=== PATIENT | male | born 1975 | race Caucasian/White ===

== ENCOUNTER 2017-12-17 10:23 | Emergency (ER) | payer MEDICAID ==
[~2017-12-17] VITALS: Ht 157.5 cm; Wt 63.5 kg
--- NOTE | 2017-12-17 10:33 | NUR ---
Patient to bed 11. RN evaluating patient at bedside.
[2017-12-17 10:36] VITALS: BP 129/85
--- NOTE | 2017-12-17 10:51 | NUR ---
PATIENT PRESENTS TO ED WITH DISCOLORATION TO RIGHT SHOULDER AREA S/P FALL IN SHOWER ONTO SHOWER BAR YESTERDAY---FULL ROM WITHOUT GRIMACE OR MOAN . SKI TOPPER STATES PT REMAINS WITH NORMAL BEHAVIOR . PAIN OF 0/10 AT THIS TIME; VSS; PATIENT POSITIONED FOR COMFORT; HOB ELEVATED; BEDRAILS UP X2; BED DOWN. ER MD MADE AWARE OF PT STATUS.
[2017-12-17] MEDS ORDERED: diphenhydrAMINE 50 MG/ML VIAL IM ONE (11:05)
[2017-12-17] MEDS ORDERED: LORazepam 2 MG/ML VIAL IM ONE (11:05)
--- NOTE | 2017-12-17 12:36 | NUR ---
X-RAY COMPLETED---PT NOT AGGRESSIVE, COOPERATIVE AFTER MED INTERVENTION
[2017-12-17 13:06] VITALS: BP 134/79
--- NOTE | 2017-12-17 13:07 | NUR ---
Patient discharged with v/s stable. Written and verbal after care instructions given and explained. Patient alert, oriented and verbalized understanding of instructions. Wheel Chair Assisted with by caregiver. All questions addressed prior to discharge. ID band removed. Patient advised to follow up with PMD. Rx of MOTRIN 800MG given. Patient educated on indication of medication including possible reaction and side effects. Opportunity to ask questions provided and answered.
== END 2017-12-17 13:07 | disposition home or self-care (01) ==
LOC: MED 10:23
DX: S42.001A Fracture of unspecified part of right clavicle, initial encounter for closed fracture (principal); W22.01XA Walked into wall, initial encounter; Y93.E1 Activity, personal bathing and showering; Y92.89 Other specified places as the place of occurrence of the external cause; Y99.8 Other external cause status; E03.9 Hypothyroidism, unspecified
CPT/HCPCS: 73030; 96372; 99284; J1200; J2060; Q0092

== ENCOUNTER 2018-09-25 10:38 | Emergency (ER) | payer MEDICAID ==
[~2018-09-25] VITALS: Ht 157.5 cm; Wt 63.5 kg
--- NOTE | 2018-09-25 10:42 | NUR ---
PT IN WHEELCHAIR TO ER BED 11
--- NOTE | 2018-09-25 10:55 | NUR ---
C/O RHINORRHEA X 2 MONTHS, PER CAREGIVER, NO N/V/D/FEVER OR OTHER SYMPTOMS OF ILLNESS AT THIS TIME. PT CURRENTLY TAKES CLARITIN WITH NO RELIEF. SKIN IS PINK/WARM/DRY, LUNGS CLEAR BL; HR EVEN AND REGULAR.
--- NOTE | 2018-09-25 11:00 | NUR ---
ERMD AT BEDSIDE
[2018-09-25 12:00] VITALS: BP 113/60
--- NOTE | 2018-09-25 12:00 | NUR ---
Patient discharged with v/s stable. Written and verbal after care instructions given and explained and caregiver verbalized understanding. Wheel Chair Assisted with by caregiver. All questions addressed prior to discharge. ID band removed. Rx of pseudophedrine and flonase given. Opportunity to ask questions provided and answered.
== END 2018-09-25 12:00 | disposition home or self-care (01) ==
LOC: MED 10:38
DX: J30.9 Allergic rhinitis, unspecified (principal); J32.9 Chronic sinusitis, unspecified; E03.9 Hypothyroidism, unspecified
CPT/HCPCS: 99283

== ENCOUNTER 2023-03-04 13:21 | Emergency (ER) | payer OTHER, MEDICAID ==
[~2023-03-04] VITALS: Ht 165.1 cm; Wt 63.0 kg
[2023-03-04 14:51] VITALS: BP 135/93; PULSE 91; RESP 20; TEMP 97.5; O2SAT 98
[2023-03-04 15:27] VITALS: BP 112/76; PULSE 78; RESP 18; TEMP 97; O2SAT 98
== END 2023-03-04 15:27 | disposition home or self-care (01) ==
LOC: MED 13:21
DX: E03.9 Hypothyroidism, unspecified (principal); F79 Unspecified intellectual disabilities; Z02.89 Encounter for other administrative examinations; W19.XXXA Unspecified fall, initial encounter; Y93.89 Activity, other specified; Y92.89 Other specified places as the place of occurrence of the external cause; Y99.8 Other external cause status
CPT/HCPCS: 99281

== ENCOUNTER 2023-05-21 08:31 | Inpatient (IN) | payer OTHER, MEDICAID ==
[~2023-05-21] VITALS: Ht 162.6 cm; Wt 68.0 kg
[2023-05-21] VITALS (7 sets, daily range): BP systolic 125; BP diastolic 57; PULSE 90–100; RESP 20–23; TEMP 99; O2SAT 93–96
[2023-05-21] MEDS ORDERED: NACL 0.9% 2,000 ML IV ONE (08:50)
[2023-05-21] MEDS ORDERED: AZITHROMYCIN 500 MG in DEXTROSE 5% 250 ML IV ONE (09:25)
[2023-05-21 09:30] LABS: BASOPHILS # (AUTO) 0.1 K/uL (0.00-0.22); BASOPHILS % (AUTO) 0.5 % (0.0-2.0); EOSINOPHILS # (AUTO) 0.2 K/uL (0-0.4); EOSINOPHILS % (AUTO) 2.6 % (0.0-4.0); HEMATOCRIT 31.6 % (36-52); HEMOGLOBIN 10.5 g/dL (12.0-18.0); LYMPHOCYTES # (AUTO) 4.6 K/uL (2.0-11.5); LYMPHOCYTES % (AUTO) 48.6 % (20.5-51.1); MEAN CORPUSCULAR HEMOGLOBIN 28 pg (27-31); MEAN CORPUSCULAR HGB CONC 33 g/dL (33-37); MEAN CORPUSCULAR VOLUME 85.3 fL (80-94); MONOCYTES # (AUTO) 0.7 K/uL (0.8-1.0); MONOCYTES % (AUTO) 7.2 % (1.7-9.3); NEUTROPHILS # (AUTO) 3.9 K/uL (1.8-7.7); NEUTROPHILS % (AUTO) 41.1 % (42.2-75.2); PLATELET COUNT (AUTO) 405 K/uL (140-450); RED CELL DISTRIBUTION WIDTH 14.4 % (11.6-13.7); WHITE BLOOD COUNT (AUTO) 9.5 K/uL (4.8-10.8)
[2023-05-21] MEDS ORDERED: AZITHROMYCIN 500 MG INJ VIAL IV ONE (09:38)
[2023-05-21] MEDS ORDERED: cefTRIAXone 1,000 MG VIAL ONE (09:38)
[2023-05-21 09:49] LABS: INR 0.99 (0.8-1.2); PROTHROMBIN TIME 10.4 secs (10.8-13.4)
[2023-05-21 10:24] LABS: ALANINE AMINOTRANSFERASE 84 U/L (12-78); ALBUMIN 1.8 g/dL (3.4-5.0); ALKALINE PHOSPHATASE 100 U/L (50-136); ASPARTATE AMINOTRANSFERASE 81 U/L (15-37); BILIRUBIN,DIRECT 0.1 mg/dL (0.0-0.3); LACTIC ACID 1.6 mmol/L (0.4-2.0); TOTAL BILIRUBIN 0.3 mg/dL (0.0-1.0)
[2023-05-21 10:48] LABS: CALCIUM 8.7 mg/dL (8.5-10.1); CARBON DIOXIDE 29.7 mmol/L (21-32); CREATININE 0.6 mg/dL (0.6-1.3); POTASSIUM 3.7 mmol/L (3.5-5.1)
[2023-05-21 11:33] LABS: FLU A ANTIGEN negative (NEGATIVE); FLU B ANTIGEN POSITIVE (NEGATIVE)
[2023-05-21] MEDS ORDERED: ALBUTEROL SULFATE/IPRATROPIU 3 ML SOL IH PRN (12:30)
[2023-05-21] MEDS ORDERED: DEXTROSE 50% 50 ML SYR IVP PRN (12:55)
[2023-05-21] MEDS ORDERED: MORPHINE SULFATE 2 MG/ML SYR IVP PRN (13:00)
[2023-05-21] MEDS ORDERED: ACETAMINOPHEN 325 MG TAB PO PRN (13:00)
[2023-05-21] MEDS ORDERED: MAG SULF 2000 MG/WATER PREMIX 50 ML IV PRN (13:00)
[2023-05-21] MEDS ORDERED: POTASSIUM CHLORIDE 10 MEQ TABER PO PRN (13:00)
[2023-05-21] MEDS ORDERED: ONDANSETRON 4 MG/2 ML VIAL IVP PRN (13:00)
[2023-05-21] MEDS ORDERED: ZOLPIDEM 10 MG TAB PO PRN (13:00)
[2023-05-21] MEDS: methylPREDNISolone SS 40 MG/ML VIAL IVP SCH ×2 (13:32→21:47)
[2023-05-21] MEDS: ALBUTEROL SULFATE/IPRATROPIU 3 ML SOL IH SCH ×3 (15:36→23:00)
[2023-05-21] MEDS: BLOOD GLUCOSE MONITORING 1 DEV DEV FS SCH ×2 (16:45→21:08)
[2023-05-21] MEDS ORDERED: FLONAS NS (17:34)
[2023-05-21] MEDS ORDERED: IBUP-2216 PO (17:34)
[2023-05-21] MEDS ORDERED: LEVO750T75 PO (17:34)
[2023-05-21] MEDS ORDERED: ROB1 PO (17:34)
[2023-05-21] MEDS ORDERED: BENZ-283 PO (17:34)
[2023-05-21] MEDS: OSELTAMIVIR PHOSPHATE 75 MG CAP PO SCH (21:00)
[2023-05-21] MEDS ORDERED: PIPERACILLIN/TAZOBACTAM 2.25 GM VIAL IV ONE (21:10)
[2023-05-21] MEDS: PIPERACILLIN/TAZOBACTAM 2.25 GM in DEXTROSE 5% 50 ML IV SCH (21:47)
[2023-05-21] MEDS: FUROSEMIDE 40 MG/4 ML VIAL IVP SCH (21:47)
[2023-05-22] VITALS (14 sets, daily range): BP systolic 95–120; BP diastolic 49–69; PULSE 74–92; RESP 16–24; TEMP 97–97.3; O2SAT 94–100
[2023-05-22] MEDS: ALBUTEROL SULFATE/IPRATROPIU 3 ML SOL IH SCH ×6 (03:00→22:57)
[2023-05-22 03:54] LABS: BASOPHILS % (AUTO) 0.2 % (0.0-2.0); HEMATOCRIT 31.3 % (36-52); HEMOGLOBIN 10.5 g/dL (12.0-18.0); LYMPHOCYTES # (AUTO) 1.7 K/uL (2.0-11.5); LYMPHOCYTES % (AUTO) 22.4 % (20.5-51.1); MEAN CORPUSCULAR HEMOGLOBIN 29 pg (27-31); MEAN CORPUSCULAR HGB CONC 34 g/dL (33-37); MONOCYTES # (AUTO) 0.3 K/uL (0.8-1.0); MONOCYTES % (AUTO) 3.3 % (1.7-9.3); NEUTROPHILS # (AUTO) 5.7 K/uL (1.8-7.7); NEUTROPHILS % (AUTO) 74.1 % (42.2-75.2); PLATELET COUNT (AUTO) 424 K/uL (140-450); RED BLOOD CELL COUNT(AUTO) 3.68 MIL/uL (4.20-6.10); RED CELL DISTRIBUTION WIDTH 14.2 % (11.6-13.7); WHITE BLOOD COUNT (AUTO) 7.7 K/uL (4.8-10.8)
[2023-05-22 04:10] LABS: ALBUMIN 1.9 g/dL (3.4-5.0); ANION GAP 14.4 (8-16); CALCIUM 8.8 mg/dL (8.5-10.1); CARBON DIOXIDE 27.5 mmol/L (21-32); CREATININE 0.6 mg/dL (0.6-1.3); POTASSIUM 3.9 mmol/L (3.5-5.1); TOTAL BILIRUBIN 0.2 mg/dL (0.0-1.0); TOTAL PROTEIN, SERUM 7.2 g/dL (6.4-8.2)
[2023-05-22] MEDS ORDERED: PIPERACILLIN/TAZOBACTAM 2.25 GM VIAL IV ONE (05:02)
[2023-05-22] MEDS: PIPERACILLIN/TAZOBACTAM 2.25 GM in DEXTROSE 5% 50 ML IV SCH ×2 (05:13→15:07)
[2023-05-22] MEDS: methylPREDNISolone SS 40 MG/ML VIAL IVP SCH ×3 (05:15→21:18)
[2023-05-22] MEDS: BLOOD GLUCOSE MONITORING 1 DEV DEV FS SCH ×4 (07:30→21:19)
[2023-05-22] MEDS: ENOXAPARIN 40 MG/0.4 ML SYR SUBQ SCH (08:56)
[2023-05-22] MEDS: OSELTAMIVIR PHOSPHATE 75 MG CAP PO SCH ×2 (08:57→21:00)
[2023-05-22] MEDS: PANTOPRAZOLE 40 MG INJ VIAL IVP SCH (09:00)
[2023-05-22] MEDS: FUROSEMIDE 40 MG/4 ML VIAL IVP SCH ×3 (10:11→21:18)
[2023-05-22] MEDS: INSULIN LISPRO SLIDING SCALE 100 UNITS/ML VIAL SUBQ PRN ×2 (11:41→16:56)
[2023-05-22] MEDS: PIPERACILLIN/TAZOBACTAM 3.375 GM in DEXTROSE 5% 50 ML IV SCH (21:18)
[2023-05-23] VITALS (16 sets, daily range): BP systolic 95–142; BP diastolic 46–73; PULSE 55–87; RESP 17–24; TEMP 96.8–98.2; O2SAT 95–99
[2023-05-23] MEDS: ALBUTEROL SULFATE/IPRATROPIU 3 ML SOL IH SCH ×4 (04:04→16:19)
[2023-05-23] MEDS: PIPERACILLIN/TAZOBACTAM 3.375 GM in DEXTROSE 5% 50 ML IV SCH ×2 (05:07→12:01)
[2023-05-23] MEDS: methylPREDNISolone SS 40 MG/ML VIAL IVP SCH ×2 (05:07→12:01)
[2023-05-23] MEDS: INSULIN LISPRO SLIDING SCALE 100 UNITS/ML VIAL SUBQ PRN ×2 (06:43→15:53)
[2023-05-23] MEDS: BLOOD GLUCOSE MONITORING 1 DEV DEV FS SCH ×3 (06:43→15:53)
[2023-05-23 07:14] LABS: BASOPHILS # (AUTO) 0.1 K/uL (0.00-0.22); BASOPHILS % (AUTO) 1.1 % (0.0-2.0); HEMATOCRIT 29.4 % (36-52); LYMPHOCYTES # (AUTO) 1.8 K/uL (2.0-11.5); LYMPHOCYTES % (AUTO) 20.4 % (20.5-51.1); MEAN CORPUSCULAR HEMOGLOBIN 29 pg (27-31); MEAN CORPUSCULAR HGB CONC 34 g/dL (33-37); MEAN CORPUSCULAR VOLUME 84.8 fL (80-94); MONOCYTES # (AUTO) 0.6 K/uL (0.8-1.0); MONOCYTES % (AUTO) 6.4 % (1.7-9.3); NEUTROPHILS # (AUTO) 6.2 K/uL (1.8-7.7); NEUTROPHILS % (AUTO) 72.1 % (42.2-75.2); PLATELET COUNT (AUTO) 468 K/uL (140-450); RED BLOOD CELL COUNT(AUTO) 3.47 MIL/uL (4.20-6.10); RED CELL DISTRIBUTION WIDTH 14.5 % (11.6-13.7); WHITE BLOOD COUNT (AUTO) 8.6 K/uL (4.8-10.8)
[2023-05-23 07:36] LABS: ANION GAP 13.2 (8-16); CALCIUM 9.1 mg/dL (8.5-10.1); CARBON DIOXIDE 29.4 mmol/L (21-32); CREATININE 0.6 mg/dL (0.6-1.3); POTASSIUM 3.6 mmol/L (3.5-5.1); TOTAL BILIRUBIN 0.5 mg/dL (0.0-1.0); TOTAL PROTEIN, SERUM 7.6 g/dL (6.4-8.2)
[2023-05-23] MEDS: PANTOPRAZOLE 40 MG INJ VIAL IVP SCH (08:37)
[2023-05-23] MEDS: ENOXAPARIN 40 MG/0.4 ML SYR SUBQ SCH (08:38)
[2023-05-23] MEDS: FUROSEMIDE 40 MG/4 ML VIAL IVP SCH (08:38)
[2023-05-23] MEDS: OSELTAMIVIR PHOSPHATE 75 MG CAP PO SCH ×2 (08:38→14:09)
[2023-05-23] MEDS ORDERED: TAM75 PO (15:06)
[2023-05-23] MEDS ORDERED: AMOX-999 PO (15:06)
[2023-05-23] MEDS ORDERED: PRED20TA5 PO (15:20)
[2023-05-23] MEDS ORDERED: PANT40EC PO (15:21)
== END 2023-05-23 17:10 | disposition home or self-care (01) | DRG 193 ==
LOC: MED 08:31 → MTU 12:36
PROVIDERS: ADMIT Family Medicine; ATTEND Family Medicine
DX: J10.00 Influenza due to other identified influenza virus with unspecified type of pneumonia (principal); J96.01 Acute respiratory failure with hypoxia; R65.10 Systemic inflammatory response syndrome (SIRS) of non-infectious origin without acute organ dysfunction; E46 Unspecified protein-calorie malnutrition; E03.9 Hypothyroidism, unspecified; R74.01 Elevation of levels of liver transaminase levels; Z20.822 Contact with and (suspected) exposure to COVID-19; R73.9 Hyperglycemia, unspecified; Z68.25 Body mass index [BMI] 25.0-25.9, adult
CPT/HCPCS: 36415; 71045; 80048; 80053; 80076; 82948; 83605; 83880; 84484; 85025; 85610; 87040; 87081; 93005; 94640; 94667; 96365; 99291; C9113; J0456; J0696; J1650; J1815; J1940; J2543; J2920; J7060; Q0092

== ENCOUNTER 2023-07-20 19:41 | Emergency (ER) | payer OTHER ==
[~2023-07-20] VITALS: Ht 165.1 cm; Wt 55.8 kg
[~2023-07-20 19:41] MED LIST: BENZ-283 PO; BISA-213 RC; DIAZ-950 PO; DOCU-299 PO; FLONAS NS; FURO-572 PO; IBUP-2216 PO; LEVO0.0511 PO; LORA10TA19 PO; OLAN2.5T1 PO; OLAN20TA1 PO; PANT40EC PO; POLY17PD65 PO; ROB1 PO; SENN-73 PO; [UNRECOGNIZED DRUG - CODE] OT
[2023-07-20 19:49] VITALS: BP 116/71; PULSE 81; RESP 16; TEMP 97.5; O2SAT 100
[2023-07-20 22:22] VITALS: TEMP 98.3
[2023-07-20 22:48] LABS: BASOPHILS % (AUTO) 0.5 % (0.0-2.0); EOSINOPHILS # (AUTO) 0.2 K/uL (0-0.4); EOSINOPHILS % (AUTO) 2.1 % (0.0-4.0); HEMATOCRIT 38.7 % (36-52); HEMOGLOBIN 12.9 g/dL (12.0-18.0); LYMPHOCYTES # (AUTO) 3.8 K/uL (2.0-11.5); LYMPHOCYTES % (AUTO) 44.5 % (20.5-51.1); MEAN CORPUSCULAR HEMOGLOBIN 29 pg (27-31); MEAN CORPUSCULAR HGB CONC 33 g/dL (33-37); MEAN CORPUSCULAR VOLUME 87.8 fL (80-94); MONOCYTES # (AUTO) 0.9 K/uL (0.8-1.0); NEUTROPHILS # (AUTO) 3.5 K/uL (1.8-7.7); NEUTROPHILS % (AUTO) 41.9 % (42.2-75.2); PLATELET COUNT (AUTO) 299 K/uL (140-450); RED BLOOD CELL COUNT(AUTO) 4.41 MIL/uL (4.20-6.10); RED CELL DISTRIBUTION WIDTH 14.6 % (11.6-13.7); WHITE BLOOD COUNT (AUTO) 8.4 K/uL (4.8-10.8)
[2023-07-20 23:09] LABS: ALBUMIN 3.1 g/dL (3.4-5.0); ANION GAP 10.2 (8-16); CALCIUM 8.8 mg/dL (8.5-10.1); CARBON DIOXIDE 30.8 mmol/L (21-32); CREATININE 0.8 mg/dL (0.6-1.3); TOTAL BILIRUBIN 0.2 mg/dL (0.0-1.0); TOTAL PROTEIN, SERUM 7.9 g/dL (6.4-8.2)
[2023-07-20 23:12] LABS: LACTIC ACID 1.2 mmol/L (0.4-2.0)
[2023-07-21 00:10] VITALS: BP 112/79; PULSE 72; RESP 12; O2SAT 99
[2023-07-21 00:11] LABS: FLU A ANTIGEN negative (NEGATIVE); FLU B ANTIGEN NEGATIVE (NEGATIVE)
== END 2023-07-21 00:22 | disposition home or self-care (01) ==
LOC: MED 19:41
DX: R09.02 Hypoxemia (principal); R11.2 Nausea with vomiting, unspecified; Z20.822 Contact with and (suspected) exposure to COVID-19; I10 Essential (primary) hypertension; E03.9 Hypothyroidism, unspecified; Z79.899 Other long term (current) drug therapy
CPT/HCPCS: 36415; 71045; 80053; 83605; 83880; 84484; 85025; 87040; 87426; 87804; 93005; 99285; Q0092